=== PATIENT | male | born 1960 ===

== ENCOUNTER 2021-11-16 05:42 | Day surgery (SDC) | payer OTHER ==
[~2021-11-16 05:42] MED LIST: COZAAR100 MG PO
== END 2021-11-16 17:30 | disposition home or self-care (01) ==
LOC: CIR.AMB 05:42
PROVIDERS: ATTEND Surgery Surgery of the Hand
DX: M65.841 Other synovitis and tenosynovitis, right hand (principal); I10 Essential (primary) hypertension; Z53.09 Procedure and treatment not carried out because of other contraindication